=== PATIENT | female | born 1990 | race American Indian/Alaskan Native ===

== ENCOUNTER 2020-06-08 17:55 | Emergency (ER) | payer MEDICAID ==
[2020-06-08 18:13] VITALS: BP 148/103
[2020-06-08] MEDS ORDERED: IBUPROFEN 800 MG TAB PO ONE (18:20)
--- NOTE | 2020-06-08 18:55 | XRay Report ---
LEFT WRIST 3 VIEWS INDICATION / CLINICAL INFORMATION: pain. COMPARISON: None available. FINDINGS: Exam is limited due to positioning factors. BONES/JOINT(S): No appreciable fracture or subluxation. No significant degenerative changes. SOFT TISSUES: No significant abnormality. ADDITIONAL FINDINGS: None. Signer Name: Eilo Jasso MD Signed: 06/08/2020 6:51 PM Workstation Name: [id number]
--- NOTE | 2020-06-08 19:34 | Emergency Department Report ---
ED Extremity Problem HPI - General Chief complaint: Extremity Injury, Upper Stated complaint: SHOULDER DISLOCATION Time Seen by Provider: 06/08/20 18:20 Source: patient Mode of arrival: Ambulatory Limitations: No Limitations - History of Present Illness Initial comments: This is a 29-year-old female presents to the ED complaining of left wrist pain that began earlier today about an hour prior to arrival to the ED. Patient states that she was carrying her son and tried to catch him as he was about a fall when she twisted her wrist. Patient states she is having excruciating pain to the wrist. Patient states that she initially had surgery on the wrist prior in 2011. MD Complaint: extremity pain Location: right Severity scale (0 -10): 10 - Related Data Previous Rx's Medication Instructions Recorded Last Taken Type Cyclobenzaprine [Flexeril] 10 mg PO QHS PRN #20 tablet 06/08/20 Unknown Rx Ibuprofen [Motrin 800 MG tab] 800 mg PO Q8HR PRN #30 tablet 06/08/20 Unknown Rx Allergies Allergy/AdvReac Type Severity Reaction Status Date / Time No Known Allergies Allergy Unverified 06/08/20 18:08 ED Review of Systems ROS: Stated complaint: SHOULDER DISLOCATION Other details as noted in HPI Comment: All other systems reviewed and negative ED Past Medical Hx - Surgical History Additional Surgical History: HIP REPLACEMENT - Social History Smoking Status: Never Smoker Substance Use Type: None - Medications Home Medications: Home Medications Medication Instructions Recorded Confirmed Last Taken Type Cyclobenzaprine [Flexeril] 10 mg PO QHS PRN #20 tablet 06/08/20 Unknown Rx Ibuprofen [Motrin 800 MG tab] 800 mg PO Q8HR PRN #30 tablet 06/08/20 Unknown Rx ED Physical Exam - General Limitations: No Limitations General appearance: alert, in no apparent distress - Head Head exam: Present: atraumatic, normocephalic - Eye Eye exam: Present: normal appearance - ENT ENT exam: Present: mucous membranes moist - Neck Neck exam: Present: normal inspection - Respiratory Respiratory exam: Present: normal lung sounds bilaterally. Absent: respiratory distress - Cardiovascular Cardiovascular Exam: Present: regular rate, normal rhythm. Absent: systolic murmur, diastolic murmur, rubs, gallop - GI/Abdominal GI/Abdominal exam: Present: soft, normal bowel sounds - Extremities Exam Extremities exam: Present: normal inspection, full ROM, tenderness, normal capillary refill. Absent: joint swelling, calf tenderness - Expanded Upper Extremity Exam Left Shoulder Exam: Present: normal inspection, full ROM Upper Arm exam: Present: normal inspection, full ROM Elbow exam: Present: normal inspection, full ROM Forearm Wrist exam: Present: tenderness (To palpation of the wrist). Absent: swelling, abrasion, laceration, ecchymosis, deformity Hand Wrist exam: Present: full ROM, tenderness. Absent: swelling, abrasion Vascular: Present: normal capillary refill, radial pulse (Present bilaterally). Absent: vascular compromise - Back Exam Back exam: Present: normal inspection - Neurological Exam Neurological exam: Present: alert, oriented X3, normal gait - Psychiatric Psychiatric exam: Present: normal affect, normal mood - Skin Skin exam: Present: warm, dry, intact, normal color. Absent: rash ED Course Vital Signs 06/08/20 06/08/20 18:09 18:24 Pulse Rate 107 H Respiratory 24 22 Rate Blood Pressure 148/103 O2 Sat by Pulse 97 Oximetry ED Medical Decision Making - Radiology Data Radiology results: report reviewed, image reviewed LEFT WRIST 3 VIEWS INDICATION / CLINICAL INFORMATION: pain. COMPARISON: None available. FINDINGS: Exam is limited due to positioning factors. BONES/JOINT(S): No appreciable fracture or subluxation. No significant dege nerative changes. SOFT TISSUES: No significant abnormality. ADDITIONAL FINDINGS: None. Signer Name: Elio Jasso MD Signed: 06/08/2020 6:51 PM Workstation Name: [id number] Transcribed By: CHRISTIANO Dictated By: Elio Jasso MD Electronically Authenticated By: Elio Jasso MD Signed Date/Time: 06/08/201850 - Medical Decision Making 29-year-old female presents the ED with left wrist pain secondary to injury/sprain X-ray shows no acute findings. Patient states pain reduced with 1 dose of Motrin in the ED. Discussed all findings with the patient. Patient placed in sling. Discussed with patient to follow-up with primary care physician. Vital signs are normal patient is in no acute distress. Discussed with patient if she has new or worsening symptoms she may return to the ED. Critical care attestation.: If time is entered above; I have spent that time in minutes in the direct care of this critically ill patient, excluding procedure time. ED Disposition Clinical Impression: Wrist pain, left, Left wrist sprain Disposition: TO HOME OR SELFCARE Is pt being admited?: No Does the pt Need Aspirin: No Condition: Stable Instructions: How to Use Cold Therapy, [id number], Elastic Bandage and RICE Therapy, Wrist Sprain Rehab-SportsMed, Wrist Pain, Adult, [id number] Additional Instructions: Make sure to follow up with the primary care physician as discussed. Take all your medications as you've been prescribed. If you have any worsening symptoms or develop new symptoms please return to ED immediately. Prescriptions: Cyclobenzaprine [Flexeril] 10 mg PO QHS PRN #20 tablet PRN Reason: Muscle Spasm Ibuprofen [Motrin 800 MG tab] 800 mg PO Q8HR PRN #30 tablet PRN Reason: Pain Referrals: PRIMARY CARE, [Primary Care Provider] - 3-5 Days [facility] [Outside] - 3-5 Days [facility] [Provider Group] - 3-5 Days [facility] [Provider Group] - 3-5 Days Forms: Work/School Release Form(ED) Time of Disposition: 21:03
[2020-06-08] MEDS ORDERED: CYCLOBENZAPRINE 10 MG TAB PO ONE (21:00)
== END 2020-06-08 21:32 | disposition home or self-care (01) ==
LOC: ED 17:55
DX: S63.502A Unspecified sprain of left wrist, initial encounter (principal); Z79.899 Other long term (current) drug therapy; W18.30XA Fall on same level, unspecified, initial encounter; Y93.89 Activity, other specified; Y92.89 Other specified places as the place of occurrence of the external cause; Y99.8 Other external cause status